=== PATIENT | male | born 1970 | race African-American/Black ===

== ENCOUNTER 2016-10-04 20:32 | Emergency (ER) | payer BC ==
[2016-10-04 20:44] VITALS: TEMP 97.8
[2016-10-04] MEDS ORDERED: IPRATROPIUM-ALBUTEROL 3 ML NEB INHALATION STA (20:59)
[2016-10-04] MEDS ORDERED: methylPREDNISolone SOD SUCCI 125 MG/2 ML VIAL IV STA (20:59)
--- NOTE | 2016-10-04 21:04 | ED ---
SOB HPI - General Chief Complaint: Shortness of Breath Stated Complaint: asthma Time Seen by Provider: 10/04/16 20:50 Source: patient Mode of arrival: EMS Limitations: no limitations - History of Present Illness Initial Comments: Patient's a 46-year-old male with past medical history asthma presenting with asthma attack. Patient states prior to arrival he was having trouble breathing & wheezing. He had an old prescription prednisone 5 mg for which he took prior to arrival. Patient called 911 and EMS provided him with a breathing treatment. Patient had significant improvement of breathing after treatment. Patient denies fever, chills, chest pain, cough, sputum production. Patient denies being exposed to any allergens. He does live with animals. Patient does continue to smoke. He is decreasing the amount and down to 7 cigarettes a day. - Related Data Previous Rx's Medication Instructions Recorded Albuterol Inhaler [Ventolin Hfa 1 - 2 puff INHALATION Q6HR PRN #1 10/04/16 Inhaler] inhaler predniSONE 20 mg PO BID #10 tab 10/04/16 Allergies Allergy/AdvReac Type Severity Reaction Status Date / Time No Known Allergies Allergy Verified 10/04/16 21:09 Review of Systems ROS Statement: Those systems with pertinent positive or pertinent negative responses have been documented in the HPI. Constitutional: No fever and no chills. HENT: No congestion, no rhinorrhea and no sore throat. Eyes: No discharge and no redness. Respiratory: No cough and + wheezing/shortness of breath. Cardiovascular: No chest pain and no palpitations. Gastrointestinal: No nausea, no vomiting, no abdominal pain and no diarrhea. Genitourinary: No dysuria and no hematuria. Musculoskeletal: No back pain and no arthralgias. Skin: No pallor and no rash. Neurological: No dizziness and No headaches. ROS Other: All systems not noted in ROS Statement are negative. Past Medical History Past Medical History: Asthma History of Any Multi-Drug Resistant Organisms: None Reported Past Surgical History: No Surgical Hx Reported Past Psychological History: No Psychological Hx Reported Smoking Status: Current every day smoker Past Alcohol Use History: Occasional Past Drug Use History: None Reported General Exam - General Exam Comments Initial Comments: Constitutional: Patient appears well-developed and well-nourished. No distress. Head: Normocephalic and atraumatic. Eyes: Conjunctivae and EOM are normal. Right eye exhibits no discharge. Left eye exhibits no discharge. No scleral icterus. Neck: Normal range of motion. Neck supple. Cardiovascular: Normal rate and regular rhythm. No murmur heard. Pulmonary/Chest: Bilateral diffuse inspirational wheezing. Abdominal: Soft. No distension. There is no tenderness. There is no rebound and no guarding. Musculoskeletal: Normal range of motion. No edema or tenderness. Neurological: Patient alert and oriented to person, place, and time. Skin: Skin is warm and dry. Not diaphoretic. Nursing notes and vitals reviewed. Limitations: no limitations Course Vital Signs 10/04/16 10/04/16 10/04/16 20:38 20:52 20:55 Temperature 97.8 F Pulse Rate 77 78 Respiratory 16 22 22 Rate Blood Pressure 147/89 134/90 O2 Sat by Pulse 98 97 Oximetry 10/04/16 10/04/16 10/04/16 21:22 21:32 21:33 Temperature Pulse Rate 84 84 84 Respiratory Rate Blood Pressure O2 Sat by Pulse Oximetry 10/04/16 10/04/16 10/04/16 21:43 21:44 21:53 Temperature Pulse Rate 86 86 86 Respiratory Rate Blood Pressure O2 Sat by Pulse Oximetry 10/04/16 22:02 Temperature Pulse Rate 86 Respiratory 16 Rate Blood Pressure 128/81 O2 Sat by Pulse 95 Oximetry - Reevaluation(s) Reevaluation #1: 10/04/16 22:11 After breathing treatments patient is breathing better. Wheezing resolved. Medical Decision Making - Medical Decision Making Patient's a 46-year-old noncompliant asthmatic presenting with acute shortness of breath and wheezing. Symptoms significantly improved after EMS provided DuoNebs. Patient did arrive with persistent wheezing for which a chest x-ray was obtained and negative. Patient was provided DuoNeb's here 3 as well as prednisone 60 mg by mouth with improvement of symptoms. Patient does not have a PCP so he was provided a short course of steroids as well as a albuterol MDI. PCP referral provided. Stressed importance of developing an asthma action plan with her PCP and to quit smoking. Prior to discharge, patient was resting comfortably in bed. Course of stay improved. Denies pain. Discussed physical exam and diagnostic tests with patient. Questions answered and patient is agreeable to discharge with close follow up with Primary Care Physician. Instructed to return to Emergency Department if symptoms worsen. Disposition Clinical Impression: Asthma exacerbation Disposition: HOME SELF-CARE Condition: Good Instructions: Asthma (ED) Prescriptions: Albuterol Inhaler [Ventolin Hfa Inhaler] 1 - 2 puff INHALATION Q6HR PRN #1 inhaler PRN Reason: Shortness Of Breath Or Wheezing predniSONE 20 mg PO BID #10 tab Referrals: None,Stated [Primary Care Provider] - 1-2 days Glenda Goel MD [REFERRING] - 1-2 days
[2016-10-04] MEDS ORDERED: predniSONE 20 MG TAB PO STA (21:23)
--- NOTE | 2016-10-04 21:30 | XR ---
EXAMINATION TYPE: XR chest 1V portable DATE OF EXAM: 10/04/2016 COMPARISON: NONE INDICATION: Short of breath asthma attack TECHNIQUE: Single frontal view of the chest is obtained. FINDINGS: The heart size is normal. The pulmonary vasculature is normal. The lungs are clear. IMPRESSION: 1. No acute pulmonary process.
[2016-10-04 21:47] VITALS: PULSE 86
[2016-10-04 22:03] VITALS: BP 128/81; RESP 16
== END 2016-10-04 22:03 | disposition home or self-care (01) ==
LOC: EC 20:32
DX: J45.901 Unspecified asthma with (acute) exacerbation (principal); F17.210 Nicotine dependence, cigarettes, uncomplicated
CPT/HCPCS: 99285; 94640 ×2; 71010; J7512

== ENCOUNTER 2018-01-09 22:44 | Emergency (ER) | payer BC ==
[2018-01-09] MEDS ORDERED: IPRATROPIUM-ALBUTEROL 3 ML NEB INHALATION STA (23:26)
--- NOTE | 2018-01-09 23:38 | XR ---
EXAMINATION TYPE: XR chest 2V DATE OF EXAM: 01/09/2018 COMPARISON: 10/04/2016 HISTORY: Difficulty breathing TECHNIQUE: Frontal and lateral views of the chest are obtained. FINDINGS: Heart and mediastinum are normal. Lungs are clear. Diaphragm is normal. Bony thorax is int act. IMPRESSION: Normal chest. No change.
[2018-01-10 00:28] VITALS: BP 172/98; PULSE 88; RESP 18; TEMP 97.8
--- NOTE | 2018-01-10 00:34 | ED ---
SOB HPI - General Chief Complaint: Shortness of Breath Stated Complaint: ESTEFANÍA Time Seen by Provider: 01/09/18 22:56 Source: patient Mode of arrival: ambulatory Limitations: no limitations - History of Present Illness Initial Comments: This patient is a 48-year-old man who presents to be evaluated for shortness of breath, wheeze, and a nonproductive cough. Symptoms of been coming on over the past 2-3 days. He does state that it felt at the start like it was related to his environmental ALLERGIES. The patient is not having fever or chills. No chest pain. May interview of systems negative. MD Complaint: shortness of breath, cough Onset/Timin -: days(s) Consistency: constant Improves With: nothing Worsens With: nothing Context: allergen exposure Associated Symptoms: denies other symptoms - Related Data Previous Rx's Medication Instructions Recorded Albuterol Inhaler [Ventolin Hfa 1 - 2 puff INHALATION Q6HR PRN #1 10/04/16 Inhaler] inhaler predniSONE 20 mg PO BID #10 tab 10/04/16 Albuterol Inhaler [Ventolin Hfa 1 - 2 puff INHALATION Q6HR PRN #1 01/10/18 Inhaler] inhaler predniSONE 20 mg PO BID #8 tab 01/10/18 Allergies Allergy/AdvReac Type Severity Reaction Status Date / Time No Known Allergies Allergy Verified 01/09/18 22:48 Review of Systems ROS Statement: Those systems with pertinent positive or pertinent negative responses have been documented in the HPI. ROS Other: All systems not noted in ROS Statement are negative. Constitutional: Denies: fever, chills Respiratory: Reports: cough, dyspnea, wheezes. Denies: hemoptysis, stridor Cardiovascular: Denies: chest pain, palpitations, edema Skin: Denies: rash Neurological: Denies: headache Past Medical History Past Medical History: Asthma History of Any Multi-Drug Resistant Organisms: None Reported Past Surgical History: No Surgical Hx Reported Past Psychological History: No Psychological Hx Reported Smoking Status: Current every day smoker Past Alcohol Use History: Occasional Past Drug Use History: None Reported General Exam Limitations: no limitations General appearance: alert, in no apparent distress Head exam: Present: atraumatic, normocephalic Eye exam: Present: normal appearance Neck exam: Present: normal inspection Respiratory exam: Present: wheezes. Absent: respiratory distress, rales, rhonchi, stridor Cardiovascular Exam: Present: regular rate, normal rhythm, normal heart sounds. Absent: systolic murmur, diastolic murmur, rubs, gallop GI/Abdominal exam: Present: soft. Absent: distended, tenderness, guarding, rebound Extremities exam: Present: normal inspection, normal capillary refill. Absent: pedal edema, calf tenderness Skin exam: Present: warm, dry, intact, normal color. Absent: rash Course Vital Signs 01/09/18 01/09/18 01/09/18 22:45 23:09 23:45 Temperature 98.8 F Pulse Rate 72 72 Respiratory 18 19 Rate Blood Pressure 152/93 O2 Sat by Pulse 99 Oximetry 01/09/18 01/10/18 23:57 00:26 Temperature 97.8 F Pulse Rate 72 88 Respiratory 18 Rate Blood Pressure 172/98 O2 Sat by Pulse 96 Oximetry Disposition Clinical Impression: Bronchitis Disposition: HOME SELF-CARE Condition: Good Instructions: Acute Bronchitis (ED) Prescriptions: Albuterol Inhaler [Ventolin Hfa Inhaler] 1 - 2 puff INHALATION Q6HR PRN #1 inhaler PRN Reason: Wheezing predniSONE 20 mg PO BID #8 tab Is patient prescribed a controlled substance at d/c from ED?: No Referrals: None,Stated [Primary Care Provider] - 1-2 days Glenda Goel MD [REFERRING] - 1-2 days
--- NOTE | 2018-01-12 06:47 | CDI ---
Documentation Clarification OP Dear Bill Person MD Please do addendum to ED report that provides Need ER H&P,Physical Exam. 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
== END 2018-01-10 00:44 | disposition home or self-care (01) ==
LOC: EC 22:44
DX: J40 Bronchitis, not specified as acute or chronic (principal); F17.200 Nicotine dependence, unspecified, uncomplicated
CPT/HCPCS: 71046; 94640; 99285

== ENCOUNTER 2020-03-25 01:55 | Emergency (ER) | payer BC ==
--- NOTE | 2020-03-25 02:05 | ED ---
SOB HPI - General Chief Complaint: Shortness of Breath Stated Complaint: ESTEFANÍA Time Seen by Provider: 03/25/20 01:58 Source: patient, RN notes reviewed, old records reviewed Mode of arrival: ambulatory Limitations: no limitations - History of Present Illness Initial Comments: This is a 50-year-old male DF patient Dese for evaluation of shortness of breath history of asthma. Patient believes that this is a specifically asthma exacerbation. No recent fevers no chest pain, no other complaints. No travel history or sick contacts no recent hospitalizations MD Complaint: shortness of breath, cough, "asthma attack" -: days(s) Severity: severe Severity scale (1-10): 8 Consistency: constant Improves With: oxygen, bronchodilators, upright position Worsens With: exertion, movement Known History Of: COPD, asthma Context: recent URI, recent illness Associated Symptoms: denies other symptoms - Related Data Previous Rx's Medication Instructions Recorded Albuterol Inhaler (Mhu) [Ventolin 1 - 2 puff INHALATION Q6HR PRN #1 10/04/16 Hfa Inhaler (Mhu)] inhaler predniSONE [Deltasone] 20 mg PO BID #10 tab 10/04/16 Albuterol Inhaler (Mhu) [Ventolin 1 - 2 puff INHALATION Q6HR PRN #1 01/10/18 Hfa Inhaler (Mhu)] inhaler predniSONE [Deltasone] 20 mg PO BID #8 tab 01/10/18 Albuterol Nebulized [Ventolin 2.5 mg INHALATION Q4H PRN #25 nebu 03/25/20 Nebulized] Albuterol Sulfate [Proair Hfa] 1 - 2 puff INHALATION Q4H PRN #1 03/25/20 inhaler predniSONE 50 mg PO DAILY #5 tab 03/25/20 Allergies Allergy/AdvReac Type Severity Reaction Status Date / Time No Known Allergies Allergy Verified 03/25/20 02:02 Review of Systems ROS Statement: Those systems with pertinent positive or pertinent negative responses have been documented in the HPI. ROS Other: All systems not noted in ROS Statement are negative. Past Medical History Past Medical History: Asthma History of Any Multi-Drug Resistant Organisms: None Reported Past Surgical History: No Surgical Hx Reported Past Psychological History: No Psychological Hx Reported Smoking Status: Former smoker Past Alcohol Use History: Occasional Past Drug Use History: None Reported General Exam Limitations: no limitations General appearance: alert, in no apparent distress, anxious Head exam: Present: atraumatic, normocephalic, normal inspection Eye exam: Present: normal appearance, PERRL, EOMI. Absent: scleral icterus, conjunctival injection, periorbital swelling ENT exam: Present: normal exam, mucous membranes moist Neck exam: Present: normal inspection. Absent: tenderness, meningismus, lymphadenopathy Respiratory exam: Present: normal lung sounds bilaterally, wheezes, accessory muscle use, decreased breath sounds, prolonged expiratory. Absent: respiratory distress, rales, rhonchi, stridor Cardiovascular Exam: Present: normal rhythm, tachycardia, normal heart sounds. Absent: systolic murmur, diastolic murmur, rubs, gallop, clicks GI/Abdominal exam: Present: soft, normal bowel sounds. Absent: distended, tenderness, guarding, rebound, rigid Extremities exam: Present: normal inspection, full ROM, normal capillary refill. Absent: tenderness, pedal edema, joint swelling, calf tenderness Back exam: Present: normal inspection Neurological exam: Present: alert, oriented X3, CN II-XII intact Psychiatric exam: Present: normal affect, normal mood Skin exam: Present: warm, dry, intact, normal color. Absent: rash Course Vital Signs 03/25/20 03/25/20 03/25/20 02:00 02:25 02:43 Temperature 98.8 F Pulse Rate 116 H 100 Respiratory 22 20 Rate Blood Pressure 142/88 O2 Sat by Pulse 96 Oximetry 03/25/20 03:02 Temperature Pulse Rate 92 Respiratory 18 Rate Blood Pressure 130/84 O2 Sat by Pulse 97 Oximetry - Reevaluation(s) Reevaluation #1: 03/25/20 02:37 Medical records reviewed Reevaluation #2: 03/25/20 03:24 Patient is significant improved here in the ER will be given second breathing treatment Medical Decision Making - Medical Decision Making 50 male to the ER for evaluation. Patient presents to the ER for evaluation of shortness of breath secondary to asthma exacerbation. Symptoms are improved here in the ER patient can be discharged home - Lab Data Result diagrams: 03/25/20 02:19 03/25/20 02:19 Lab Results 03/25/20 03/25/20 03/25/20 Range/Units 02:19 02:19 02:19 WBC 4.9 (3.8-10.6) k/uL RBC 4.86 (4.30-5.90) m/uL Hgb 15.6 (13.0-17.5) gm/dL Hct 46.0 (39.0-53.0) % MCV 94.6 (80.0-100.0) fL MCH 32.1 (25.0-35.0) pg MCHC 33.9 (31.0-37.0) g/dL RDW 12.5 (11.5-15.5) % Plt Count 256 (150-450) k/uL MPV 7.1 Neutrophils % 56 % Lymphocytes % 27 % Monocytes % 5 % Eosinophils % 9 % Basophils % 1 % Neutrophils # 2.7 (1.3-7.7) k/uL Lymphocytes # 1.3 (1.0-4.8) k/uL Monocytes # 0.2 (0-1.0) k/uL Eosinophils # 0.5 (0-0.7) k/uL Basophils # 0.1 (0-0.2) k/uL PT 10.7 (9.0-12.0) sec INR 1.0 (<1.2) APTT 22.8 (22.0-30.0) sec Sodium 139 (137-145) mmol/L Potassium 3.8 (3.5-5.1) mmol/L Chloride 102 (98-107) mmol/L Carbon Dioxide 30 (22-30) mmol/L Anion Gap 7 mmol/L BUN 19 (9-20) mg/dL Creatinine 1.25 (0.66-1.25) mg/dL Est GFR (CKD-EPI)AfAm 78 (>60 ml/min/1.73 sqM) Est GFR (CKD-EPI)NonAf 67 (>60 ml/min/1.73 sqM) Glucose 113 H (74-99) mg/dL Calcium 9.4 (8.4-10.2) mg/dL Magnesium 1.9 (1.6-2.3) mg/dL Total Bilirubin 0.7 (0.2-1.3) mg/dL AST 35 (17-59) U/L ALT 35 (4-49) U/L Alkaline Phosphatase 74 (38-126) U/L Lactate Dehydrogenase 544 (313-618) U/L Creatine Kinase 363 H (55-170) U/L C-Reactive Protein <5.0 (<10.0) mg/L Total Protein 7.9 (6.3-8.2) g/dL Albumin 4.6 (3.5-5.0) g/dL - EKG Data -: EKG Interpreted by Me (EKG sinus tach 103 KS 160 QRS 80 QTC 434) Disposition Clinical Impression: Asthma with acute exacerbation Disposition: HOME SELF-CARE Condition: Good Instructions (If sedation given, give patient instructions): Asthma (ED), Acute Bronchitis (ED) Prescriptions: predniSONE 50 mg PO DAILY #5 tab Albuterol Sulfate [Proair Hfa] 1 - 2 puff INHALATION Q4H PRN #1 inhaler PRN Reason: Shortness Of Breath Albuterol Nebulized [Ventolin Nebulized] 2.5 mg INHALATION Q4H PRN #25 nebu PRN Reason: Shortness Of Breath Is patient prescribed a controlled substance at d/c from ED?: No Referrals: Veronica Jack DO [Primary Care Provider] - 1-2 days
[2020-03-25] MEDS ORDERED: SODIUM CHLORIDE 0.9% 1,000 ML IV STA ×2 (02:10)
[2020-03-25] MEDS ORDERED: ALBUTEROL NEBULIZED 2.5 MG/3 ML INHALATION STA (02:10)
[2020-03-25] MEDS ORDERED: IPRATROPIUM 0.5 MG/2.5 ML NEBU INHALATION STA (02:10)
[2020-03-25] MEDS ORDERED: methylPREDNISolone SOD SUCCI 125 MG/2 ML VIAL IV STA (02:10)
[2020-03-25 02:53] LABS: Basophils # (A) 0.1 k/uL (0-0.2); Basophils % (A) 1 %; Eosinophils # (A) 0.5 k/uL (0-0.7); Eosinophils % (A) 9 %; HGB 15.6 gm/dL (13.0-17.5); Lymphocytes # (A) 1.3 k/uL (1.0-4.8); Lymphocytes % (A) 27 %; MCH 32.1 pg (25.0-35.0); MCHC 33.9 g/dL (31.0-37.0); MCV 94.6 fL (80.0-100.0); Mean Platelet Volume 7.1; Monocytes # (A) 0.2 k/uL (0-1.0); Monocytes % (A) 5 %; Neutrophils # (A) 2.7 k/uL (1.3-7.7); Neutrophils % (A) 56 %; Platelet Count 256 k/uL (150-450); RBC 4.86 m/uL (4.30-5.90); RDW 12.5 % (11.5-15.5); WBC 4.9 k/uL (3.8-10.6)
[2020-03-25 03:03] LABS: ALT 35 U/L (4-49); AST 35 U/L (17-59); African American GFR (CKD) 78 (>60 ml/min/1.73 sqM); Albumin 4.6 g/dL (3.5-5.0); Alkaline Phosphatase 74 U/L (38-126); Anion Gap 7 mmol/L; Blood Urea Nitrogen 19 mg/dL (9-20); C Reactive Protein <5.0 mg/L (<10.0); Calcium 9.4 mg/dL (8.4-10.2); Carbon Dioxide 30 mmol/L (22-30); Chloride 102 mmol/L (98-107); Creatine Kinase 363 U/L (55-170); Glucose 113 mg/dL (74-99); LDH 544 U/L (313-618); Magnesium 1.9 mg/dL (1.6-2.3); Non-African American GFR(CKD) 67 (>60 ml/min/1.73 sqM); Potassium 3.8 mmol/L (3.5-5.1); Sodium 139 mmol/L (137-145); Total Bilirubin 0.7 mg/dL (0.2-1.3); Total Protein 7.9 g/dL (6.3-8.2)
--- NOTE | 2020-03-25 03:03 | XR ---
EXAM: XR Chest, 1 View CLINICAL HISTORY: Shortness of breath TECHNIQUE: Frontal view of the chest. COMPARISON: January 09, 2018 FINDINGS: Lungs: Unremarkable. No acute infiltration, atelectasis or mass. Pleural space: Unremarkable. No pneumothorax or pleural fluid. Heart: Unremarkable. No cardiomegaly. Mediastinum: Unremarkable. Bones/joints: No acute findings. IMPRESSION: No acute findings in the chest.
[2020-03-25 03:12] LABS: Partial Thromboplastin Time 22.8 sec (22.0-30.0); Prothrombin Time 10.7 sec (9.0-12.0)
[2020-03-25 03:22] VITALS: BP 130/84; PULSE 92; RESP 18
[2020-03-25 03:38] VITALS: TEMP 98.2
== END 2020-03-25 03:39 | disposition home or self-care (01) ==
LOC: EC 01:55
DX: J45.901 Unspecified asthma with (acute) exacerbation (principal); Z87.891 Personal history of nicotine dependence
CPT/HCPCS: 36415; 94644; 93005; 83880; 80053; 82550; 83615; 83735; 84484; 85025; 85610; 85730; 86140; 71045; 99285; 96374; 96361; J2930